=== PATIENT | male | born 1940 | race Caucasian/White ===

== ENCOUNTER 2017-10-09 15:20 | Emergency (ER) | payer MEDICARE, OTHER ==
[~2017-10-09] VITALS: Ht 182.9 cm; Wt 90.7 kg
[2017-10-09 15:25] VITALS: BP 192/71
[2017-10-09] MEDS ORDERED: FLUORESCEIN SODIUM OPHTH 1 EA STRIP ONE (16:28)
[2017-10-09] MEDS ORDERED: TETRACAINE HCL/PF 0.5% UD 2 ML BOTTLE ONE (16:28)
[2017-10-09] MEDS ORDERED: TONO PEN in ED SUPPLY ONICELL 1 EA MC ONE (16:30)
[2017-10-09] MEDS ORDERED: FLUORESCEIN SODIUM OPHTH 1 EA STRIP OP ONE (16:30)
[2017-10-09] MEDS ORDERED: TETRACAINE HCL/PF 0.5% UD 2 ML BOTTLE LEFTEYE ONE (16:30)
[2017-10-10] MEDS ORDERED: TETRACAINE HCL/PF 0.5% UD 2 ML BOTTLE ONE (15:27)
[2017-10-10] MEDS ORDERED: FLUORESCEIN SODIUM OPHTH 1 EA STRIP ONE (15:27)
== END 2017-10-09 17:38 | disposition home or self-care (01) ==
LOC: ER 15:21
DX: H16.002 Unspecified corneal ulcer, left eye (principal); F10.10 Alcohol abuse, uncomplicated; F17.200 Nicotine dependence, unspecified, uncomplicated; I10 Essential (primary) hypertension; Y90.9 Presence of alcohol in blood, level not specified
CPT/HCPCS: 99284; A4606; Z7610

== ENCOUNTER 2020-03-08 09:05 | Outpatient (CLI) | payer MEDICARE, OTHER ==
[2020-03-08 10:29] LABS: BILIRUBIN,URINE NEGATIVE (NEGATIVE); COLOR,URINE YELLOW (YELLOW); LEUKOCYTE ESTERASE ,URINE NEGATIVE (NEGATIVE); NITRITE, URINE NEGATIVE (NEGATIVE); PH,URINE 5.5 (5.0-8.0); PROTEIN,URINE NEGATIVE (NEGATIVE); UGLUCOSE 100 MG/DL mg/dL (NEGATIVE); UROBILINOGEN,URINE 0.2 EU/dL (0.2)
[2020-03-08 10:34] LABS: URINE TOTAL PROTEIN 24.9 mg/dL (0-11.9)
[2020-03-08 10:38] LABS: ALANINE AMINOTRANSFERASE 14 U/L (12-78); ALBUMIN 2.8 g/dL (3.4-5.0); ALKALINE PHOSPHATASE 70 U/L (46-116); ASPARTATE AMINOTRANSFERASE 13 U/L (15-37); BILIRUBIN,TOTAL 0.4 mg/dL (0.2-1.0); CALCIUM, SERUM 8.7 mg/dL (8.5-10.1); CARBON DIOXIDE 24 mmol/L (21-32); CHLORIDE 104 mmol/L (98-107); CREATININE 1.5 mg/dL (0.6-1.3); GLUCOSE 210 mg/dL (74-106); MAGNESIUM 1.9 mg/dL (1.8-2.4); PHOSPHORUS 3.2 mg/dL (2.5-4.9); POTASSIUM 4.3 mmol/L (3.5-5.1); SODIUM SERUM 137 mmol/L (136-145); TOTAL PROTEIN, SERUM 6.5 g/dL (6.4-8.2); UREA NITROGEN, BLOOD 19 mg/dL (7-18)
[2020-03-08 11:37] LABS: BACTERIA,URINE None seen /HPF (None Seen); RBC,URINE NONE SEEN /HPF (0-2); SQUAMOUS EPITHELIAL CELL,UR Few /HPF (None Seen); WBC,URINE NONE SEEN /HPF (0-3)
[2020-03-09 08:06] LABS: COMPLEMENT C3, SERUM 97 mg/dL (82-167); COMPLEMENT C4, SERUM 20 mg/dL (12-38)
[2020-03-09 12:06] LABS: *IFE ALBUMIN 3.1 g/dL (2.9-4.4); *IFE BETA GLOBULIN 1.1 g/dL (0.7-1.3); *IFE M-SPIKE Not Observed g/dL (Not Observed); *IFEALPHA-1-GLOBULIN 0.3 g/dL (0.0-0.4)
== END 2020-03-08 23:59 | disposition home or self-care (01) ==
LOC: MSC 09:05
PROVIDERS: ATTEND Internal Medicine
DX: E11.22 Type 2 diabetes mellitus with diabetic chronic kidney disease (principal); I12.9 Hypertensive chronic kidney disease with stage 1 through stage 4 chronic kidney disease, or unspecified chronic kidney disease; N18.30 Chronic kidney disease, stage 3 unspecified; Z79.84 Long term (current) use of oral hypoglycemic drugs; E83.9 Disorder of mineral metabolism, unspecified; M89.9 Disorder of bone, unspecified; Z95.0 Presence of cardiac pacemaker; Z79.899 Other long term (current) drug therapy
CPT/HCPCS: 36415; 80053; 81001; 82043; 82306; 82570; 83036; 83735; 84100; 84155; 84156; 84165; 86038; 86160; G0463

== ENCOUNTER 2020-05-25 09:51 | Outpatient (CLI) | payer MEDICARE, OTHER | END 2020-05-25 23:59 | disposition home or self-care (01) | LOC: US 09:51 | PROVIDERS: ATTEND Internal Medicine | DX: N28.1 Cyst of kidney, acquired (principal); N13.30 Unspecified hydronephrosis; N18.30 Chronic kidney disease, stage 3 unspecified | CPT/HCPCS: 76770-TC ==

== ENCOUNTER 2020-05-29 11:37 | Outpatient (CLI) | payer MEDICARE, OTHER | END 2020-05-29 23:59 | disposition home or self-care (01) | LOC: MSC 11:37 | PROVIDERS: ATTEND Internal Medicine | DX: I25.10 Atherosclerotic heart disease of native coronary artery without angina pectoris (principal); E11.22 Type 2 diabetes mellitus with diabetic chronic kidney disease; N18.30 Chronic kidney disease, stage 3 unspecified; I10 Essential (primary) hypertension; Z79.84 Long term (current) use of oral hypoglycemic drugs; N13.30 Unspecified hydronephrosis; E83.9 Disorder of mineral metabolism, unspecified; M89.9 Disorder of bone, unspecified; I49.9 Cardiac arrhythmia, unspecified; Z95.0 Presence of cardiac pacemaker; Z79.899 Other long term (current) drug therapy ==